=== PATIENT | female | born 1975 | race Caucasian/White ===

== ENCOUNTER 2017-08-23 15:48 | Emergency (ER) | payer OTHER ==
[~2017-08-23] VITALS: Wt 56.5 kg
[2017-08-23] MEDS ORDERED: SOD CHLORIDE 0.9% 1,000 ML IV STA (16:37)
[2017-08-23] MEDS ORDERED: CYAN500T46 PO (17:00)
[2017-08-23] MEDS ORDERED: CHOL500062 PO (17:01)
[2017-08-23 17:18] LABS: BASOPHIL # 0.1 10^3/ul (0.0-0.1); BASOPHILS % 0.9 % (0.0-2.0); EOSINOPHILS # 0.1 10^3/ul (0.0-0.5); EOSINOPHILS % 1.1 % (0.0-7.0); HEMATOCRIT 34.4 % (37.0-47.0); HEMOGLOBIN 10.9 g/dl (12.0-16.0); LYMPHOCYTES % 18.9 % (15.0-51.0); MEAN CORPUSCULAR HEMOGLOBIN 25.1 pg (29.0-33.0); MEAN CORPUSCULAR HGB CONC 31.7 g/dl (32.0-37.0); MEAN CORPUSCULAR VOLUME 79.1 fl (82.0-101.0); MEAN PLATELET VOLUME 10.5 fl (7.4-10.4); MONOCYTE # 1.1 10^3/ul (0.3-0.9); MONOCYTES % 10.6 % (0.0-11.0); NEUTROPHIL # 7.1 10^3/ul (1.6-7.5); NEUTROPHILS % 68.2 % (39.0-77.0); PLATELET COUNT 316 10^3/UL (140-415); RED BLOOD COUNT 4.35 10^6/ul (4.20-5.40); RED CELL DISTRIBUTION WIDTH 18.1 % (11.5-14.5); WHITE BLOOD COUNT 10.5 10^3/ul (4.8-10.8)
--- NOTE | 2017-08-23 17:27 | RADRPT ---
PROCEDURE: Chest x-ray CLINICAL INDICATION: Palpitations TECHNIQUE: Chest single view COMPARISON: None FINDINGS: The heart is normal in size. The pulmonary vessels are normal in caliber. The lungs are clear. Th e costophrenic angles are sharp. The visualized bony thorax is unremarkable. IMPRESSION: No acute cardiopulmonary disease. RPTAT: HH .Italo Rogers MD, Date Time Electronically viewed and signed by .Italo Rogers MD, MD on 08/23/2017 17:26 .W/
[2017-08-23 17:29] LABS: ADD UMIC YES; UR ASCORBIC ACID NEGATIVE (NEGATIVE); UR BILIRUBIN (Dip) NEGATIVE (NEGATIVE); UR BLOOD (Dip) 1+ mg/dL (NEGATIVE); UR CLARITY CLEAR (CLEAR); UR COLOR YELLOW (YELLOW); UR GLUCOSE (Dip) NEGATIVE (NEGATIVE); UR KETONES (Dip) NEGATIVE (NEGATIVE); UR LEUKOCYTE ESTERASE (Dip) 2+ Leu/ul (NEGATIVE); UR NITRITE (Dip) NEGATIVE (NEGATIVE); UR RBC 2 /HPF (0-5); UR SPECIFIC GRAVITY (Dip) 1.011 (1.003-1.030); UR SQUAMOUS EPITHELIAL CELL FEW /HPF (FEW); UR TOTAL PROTEIN (Dip) NEGATIVE (NEGATIVE); UR UROBILINOGEN (Dip) NEGATIVE (NEGATIVE)
[2017-08-23 17:47] LABS: ANION GAP 15 (8-16); BLOOD UREA NITROGEN 7 mg/dl (7-20); CALCIUM 9.1 mg/dl (8.4-10.2); CARBON DIOXIDE 27 mmol/L (21-31); CHLORIDE 103 mmol/L (97-110); CREATININE 0.64 mg/dl (0.44-1.00); GLUCOSE 103 mg/dl (70-220); POTASSIUM 3.3 mmol/L (3.5-5.1); SODIUM 142 mmol/L (135-144)
[2017-08-23 17:48] LABS: BARBITURATES Negative (NEGATIVE); BENZODIAZEPINES Negative (NEGATIVE); CANNABINOIDS Negative (NEGATIVE); COCAINE Negative (NEGATIVE); OPIATES Negative (NEGATIVE)
[2017-08-23 17:58] LABS: B-TYPE NATRIURETIC PEPTIDE 25 PG/ML (0-125); TROPONIN-I < 0.012 ng/ml (0.00-0.12)
[2017-08-23] MEDS ORDERED: CEPH-443 PO (18:14)
[2017-08-23] MEDS ORDERED: ALPR0.25 PO (18:14)
--- NOTE | 2017-08-23 18:31 | ERD ---
ER Documentation Chief Complaint Date/Time DATE: 08/23/17 TIME: 18:16 Chief Complaint palpitations since this am HPI 1-year-old female comes in for palpitations that she has since this morning. They have waxed and waned. She has had no actual chest pain. No shortness of breath. She has had no fevers and chills or other symptoms. Does not happen to her before. She does not smoke and has no cardiac risk factors. She does feel a little anxious she says that happens when it comes to emergency room. ROS All systems reviewed and are negative except as per history of present illness. Medications Home Meds Active Scripts Alprazolam* (Xanax*) 0.25 Mg Tablet, 0.25 MG PO Q8H Y for ANXIETY, #5 TAB Prov:SURAJ JOHNSON DO 08/23/17 Cephalexin* (Keflex*) 500 Mg Capsule, 500 MG PO QID for 3 Days, CAP Prov:ELIZABETHSURAJ DO 08/23/17 Reported Medications Cholecalciferol (Vitamin D3) (Vitamin D3) 5,000 Unit Tab.rapdis, 5000 UNIT PO DAILY 08/23/17 Cyanocobalamin* (Vitamin B12*) 500 Mcg Tab, 500 MCG PO DAILY, TAB 08/23/17 Allergies Allergies: Coded Allergies: ciprofloxacin (Unverified Allergy, Unknown, 08/23/17) clindamycin (Unverified Allergy, Unknown, 08/23/17) Physical Exam Vitals Vital Signs Date Time Temp Pulse Resp B/P Pulse Ox O2 Delivery O2 Flow Rate FiO2 08/23/17 15:54 98.8 124 20 145/67 100 Physical Exam Const: [] Mild distress, appears nervous, appears to be in very good health otherwise.. Eyes: Normal Conjunctiva ENT: Normal External Ears, Nose and Mouth. Neck: Full range of motion..~ No meningismus. Resp: Clear to auscultation bilaterally Cardio: Regular tachycardia, no murmurs Abd: Soft, non tender, non distended. Normal bowel sounds Skin: No petechiae or rashes Ext: No cyanosis, or edema Neur: Awake and alert Psych: Mildly anxious Result Diagram: 08/23/17 1650 08/23/17 1650 Results 24 hrs Laboratory Tests Test 08/23/17 16:50 08/23/17 17:02 White Blood Count 10.510^3/ul Red Blood Count 4.3510^6/ul Hemoglobin 10.9g/dl Hematocrit 34.4% Mean Corpuscular Volume 79.1fl Mean Corpuscular Hemoglobin 25.1pg Mean Corpuscular Hemoglobin Concent 31.7g/dl Red Cell Distribution Width 18.1% Platelet Count 11375^3/UL Mean Platelet Volume 10.5fl Neutrophils % 68.2% Lymphocytes % 18.9% Monocytes % 10.6% Eosinophils % 1.1% Basophils % 0.9% Nucleated Red Blood Cells % 0.0/100WBC Neutrophils # 7.110^3/ul Lymphocytes # 2.010^3/ul Monocytes # 1.110^3/ul Eosinophils # 0.110^3/ul Basophils # 0.110^3/ul Nucleated Red Blood Cells # 0.010^3/ul Sodium Level 142mmol/L Potassium Level 3.3mmol/L Chloride Level 103mmol/L Carbon Dioxide Level 27mmol/L Anion Gap 15 Blood Urea Nitrogen 7mg/dl Creatinine 0.64mg/dl Glucose Level 103mg/dl Calcium Level 9.1mg/dl Troponin I < 0.012ng/ml B-Type Natriuretic Peptide 25PG/ML Urine Color YELLOW Urine Clarity CLEAR Urine pH 8.0 Urine Specific [place] 1.011 Urine Ketones NEGATIVEmg/dL Urine Nitrite NEGATIVEmg/dL Urine Bilirubin NEGATIVEmg/dL Urine Urobilinogen NEGATIVEmg/dL Urine Leukocyte Esterase 2+Carrillo/ul Urine Microscopic RBC 2/HPF Urine Microscopic WBC 20/HPF Urine Squamous Epithelial Cells FEW/HPF Urine Hemoglobin 1+mg/dL Urine Glucose NEGATIVEmg/dL Urine Total Protein NEGATIVEmg/dl Urine Opiates Screen Negative Urine Barbiturates Negative Urine Amphetamines Screen Negative Urine Benzodiazepines Screen Negative Urine Cocaine Screen Negative Urine Cannabinoids Negative Current Medications Medications (Trade) Dose Ordered Sig/Ancelmo Route PRN Reason Start Time Stop Time Status Last Admin Dose Admin Sodium Chloride (NS) 1,000 ml @ 1,000 mls/hr Q1H STAT IV 08/23/17 16:37 08/23/17 17:36 DC 08/23/17 17:15 Procedures/MDM Tachycardia resolved prior to any medication administration. Patient was given normal saline. Tachycardia may be related to a urinary tract infection. Troponin is negative and no signs of cardiac ischemia. This patient is currently asymptomatic I am going to discharge with instructions to obtain an echocardiogram soon through her primary care doctor. Return precautions are also given. I have low suspicion for pulmonary embolism as patient does not have chest pain or shortness of breath. I still do want her to come back to emergency room immediately if she has any increase in symptoms or any symptoms of PE which have explained. EKG interpretation: Sinus tachycardia rate of 131, normal axis, no ST or T-wave changes concerning for acute ischemia, nonspecific ST abnormality, normal intervals. spa manager interpretation: Initial sinus tachycardia followed by normal sinus rhythm without arrhythmias Chest x-ray interpretation: I see no acute process, excellent inspiration, no pneumothorax, no infiltrates, no pulmonary edema, no fractures. Departure Diagnosis: Primary Impression: UTI (urinary tract infection) Additional Impressions: Palpitations Mild anemia Condition: Stable Patient Instructions: Understanding Urinary Tract Infections (UTIs), Palpitations Additional Instructions: Llame al doctor MARONALD y julianna jose MARIZA PARA DENTRO DE 2-3 ULLOA. Consigue un referral para un ECHOCARDIOGRAM. Dgale a la secretaria que nosotros le instruimos hacer esta mariza.Avise o llame si brooks condicin se empeora antes de la mariza. Regresa aqui si peor o no mejor. SURAJ JOHNSON DO Aug 23, 2017 18:27
[2017-08-23 18:54] VITALS: BP 111/72; PULSE 79; RESP 18
== END 2017-08-23 18:54 | disposition home or self-care (01) ==
LOC: E/R 15:48
DX: N39.0 Urinary tract infection, site not specified (principal); D64.9 Anemia, unspecified
CPT/HCPCS: 36415; 71010; 80048; 80307; 81001; 83880; 84484; 85025; 99285; J7030

== ENCOUNTER 2017-09-26 12:41 | Emergency (ER) | payer OTHER ==
[~2017-09-26] VITALS: Wt 55.9 kg
[~2017-09-26 12:41] MED LIST: ALPR0.25 PO; CEPH-443 PO; CHOL500062 PO; CYAN500T46 PO
[2017-09-26] MEDS ORDERED: ONDANSETRON (ODT) 4 MG TAB ODT STA (13:06)
[2017-09-26 13:21] LABS: BASOPHIL # 0.1 10^3/ul (0.0-0.1); BASOPHILS % 1.2 % (0.0-2.0); EOSINOPHILS # 0.2 10^3/ul (0.0-0.5); HEMATOCRIT 34.6 % (37.0-47.0); HEMOGLOBIN 11.1 g/dl (12.0-16.0); LYMPHOCYTES # 1.7 10^3/ul (0.8-2.9); LYMPHOCYTES % 28.5 % (15.0-51.0); MEAN CORPUSCULAR HEMOGLOBIN 25.4 pg (29.0-33.0); MEAN CORPUSCULAR HGB CONC 32.1 g/dl (32.0-37.0); MEAN CORPUSCULAR VOLUME 79.2 fl (82.0-101.0); MEAN PLATELET VOLUME 10.5 fl (7.4-10.4); MONOCYTE # 0.6 10^3/ul (0.3-0.9); NEUTROPHIL # 3.5 10^3/ul (1.6-7.5); NEUTROPHILS % 57.1 % (39.0-77.0); PLATELET COUNT 235 10^3/UL (140-415); RED BLOOD COUNT 4.37 10^6/ul (4.20-5.40); RED CELL DISTRIBUTION WIDTH 18.3 % (11.5-14.5); WHITE BLOOD COUNT 6.1 10^3/ul (4.8-10.8)
[2017-09-26 13:41] LABS: ALBUMIN 4.3 g/dl (3.3-4.9); ALBUMIN/GLOBULIN RATIO 1.38; BILIRUBIN,INDIRECT 0.3 mg/dl (0-1.1); BILIRUBIN,TOTAL 0.3 mg/dl (0.2-1.3); CALCIUM 8.9 mg/dl (8.4-10.2); CREATININE 0.57 mg/dl (0.44-1.00); POTASSIUM 3.7 mmol/L (3.5-5.1); TOTAL PROTEIN 7.4 g/dl (6.1-8.1)
--- NOTE | 2017-09-26 14:40 | RADRPT ---
PROCEDURE: Right upper quadrant ultrasound CLINICAL INDICATION: Pain TECHNIQUE: Multiple real-time images were acquired of the patient's abdomen and right retroperiton eum utilizing a high resolution transducer. COMPARISON: None FINDINGS: The liver is normal in echogenicity and measures 12.8 cm. No focal hepatic masses are seen. The ga llbladder is physiologically distended. There is no evidence of gallstones, gallbladder wall thicke margarito, or pericholecystic fluid. The intra and extrahepatic bile ducts are normal in caliber. The c ommon bile duct measures 1.8 mm. Midline images demonstrate the pancreas to be normal in echogenicity without obvious inflammatory ch xander. Survey views of the right kidney demonstrate no evidence of hydronephrosis or renal calculi. The ri ght kidney measures 9.3 cm. IMPRESSION: Unremarkable right upper quadrant ultrasound. No evidence of cholelithiasis or acute cholecystitis. . RPTAT: HH .Italo Rogers MD, Date Time Electronically viewed and signed by .Italo Rogers MD, on 09/26/2017 14:40 .W/
[2017-09-26 14:46] LABS: URINE BLOOD (Dip) POC 2+ (NEGATIVE)
[2017-09-26] MEDS ORDERED: CEPH-443 PO (14:55)
--- NOTE | 2017-09-26 15:03 | ERD ---
ER Documentation Chief Complaint Chief Complaint ruq pain w nausea, in no distress states "not much pain today" 01/13. HPI This patient is a 42-year-old female who presents with right upper quadrant pain she has had on and off for several months she states that yesterday was really bad but today it is much better and rates the pain currently is a 3 out of 10. She has nausea but no vomiting. No diarrhea. No change with eating. No fever. He also admits to dysuria and increased urinary frequency as well as urine being a cloudy color. ROS All systems reviewed and are negative except as per history of present illness. Medications Home Meds Active Scripts Cephalexin* (Keflex*) 500 Mg Capsule, 500 MG PO BID for 5 Days, CAP Prov:RAFFI COBURN PA-C 09/26/17 Alprazolam* (Xanax*) 0.25 Mg Tablet, 0.25 MG PO Q8H Y for ANXIETY, #5 TAB Prov:ELIZABETHSURAJ DO 08/23/17 Cephalexin* (Keflex*) 500 Mg Capsule, 500 MG PO QID for 3 Days, CAP Prov:SURAJ JOHNSON DO 08/23/17 Reported Medications Cholecalciferol (Vitamin D3) (Vitamin D3) 5,000 Unit Tab.rapdis, 5000 UNIT PO DAILY 08/23/17 Cyanocobalamin* (Vitamin B12*) 500 Mcg Tab, 500 MCG PO DAILY, TAB 08/23/17 Allergies Allergies: Coded Allergies: ciprofloxacin (Unverified Allergy, Unknown, 08/23/17) clindamycin (Unverified Allergy, Unknown, 08/23/17) PMhx/Soc Medical and Surgical Hx: pt denies Medical Hx, pt denies Surgical Hx Hx Alcohol Use: No Hx Substance Use: No Smoking Status: Never smoker FmHx Family History: No diabetes Physical Exam Vitals Vital Signs Date Time Temp Pulse Resp B/P Pulse Ox O2 Delivery O2 Flow Rate FiO2 09/26/17 12:44 98.4 100 20 160/90 99 Physical Exam INITIAL VITAL SIGNS: Reviewed by me GENERAL: Awake, alert and oriented x 4, well appearing, nontoxic, speaking in full sentences. No acute distress HEAD: Atraumatic NECK: Supple. No masses. Full range of motion. No meningismus. No midline tenderness. RESPIRATORY: Clear to auscultation bilaterally. Symmetric chest wall rise. No wheezing or rales. No accessory muscle use. CV: Regular rate and rhythm. No murmurs, rubs, or gallops. ABDOMEN: Soft, non-distended. Nontender. Negative [place]. Negative McBurneys point tenderness. No CVA tenderness bilaterally. No guarding. No rebound. Result Diagram: 09/26/17 1315 09/26/17 1315 Results 24 hrs Laboratory Tests Test 09/26/17 13:15 09/26/17 14:45 White Blood Count 6.110^3/ul Red Blood Count 4.3710^6/ul Hemoglobin 11.1g/dl Hematocrit 34.6% Mean Corpuscular Volume 79.2fl Mean Corpuscular Hemoglobin 25.4pg Mean Corpuscular Hemoglobin Concent 32.1g/dl Red Cell Distribution Width 18.3% Platelet Count 78484^3/UL Mean Platelet Volume 10.5fl Neutrophils % 57.1% Lymphocytes % 28.5% Monocytes % 10.0% Eosinophils % 3.0% Basophils % 1.2% Nucleated Red Blood Cells % 0.0/100WBC Neutrophils # 3.510^3/ul Lymphocytes # 1.710^3/ul Monocytes # 0.610^3/ul Eosinophils # 0.210^3/ul Basophils # 0.110^3/ul Nucleated Red Blood Cells # 0.010^3/ul Sodium Level 141mmol/L Potassium Level 3.7mmol/L Chloride Level 105mmol/L Carbon Dioxide Level 24mmol/L Anion Gap 16 Blood Urea Nitrogen 9mg/dl Creatinine 0.57mg/dl Glucose Level 120mg/dl Calcium Level 8.9mg/dl Total Bilirubin 0.3mg/dl Direct Bilirubin 0.00mg/dl Indirect Bilirubin 0.3mg/dl Aspartate Amino Transf (AST/SGOT) 28IU/L Alanine Aminotransferase (ALT/SGPT) 34IU/L Alkaline Phosphatase 64IU/L Total Protein 7.4g/dl Albumin 4.3g/dl Globulin 3.10g/dl Albumin/Globulin Ratio 1.38 Lipase 232U/L Bedside Urine pH (LAB) 7.0 Bedside Urine Protein (LAB) Negative Bedside Urine Glucose (UA) Negative Bedside Urine Ketones (LAB) 1+ Bedside Urine Blood 2+ Bedside Urine Nitrite (LAB) Negative Bedside Urine Leukocyte Esterase (L Trace Current Medications Medications (Trade) Dose Ordered Sig/Ancelmo Route PRN Reason Start Time Stop Time Status Last Admin Dose Admin Ondansetron HCl (Zofran Odt) 4 mg ONCE STAT ODT 09/26/17 13:06 09/26/17 13:07 DC 09/26/17 13:12 Procedures/MDM 42-year-old female presents with abdominal pain. Patient had elevated blood pressure 160/90 otherwise vital signs are within normal limits. The differential diagnosis includes but is not limited to appendicitis, cholelithiasis, cholecystitis, pancreatitis, hepatitis, gastritis, peptic ulcer disease, bowel obstruction, diverticulitis, renal disease including stones, torsion, AAA, pyelonephritis, and others. Patient has no tenderness throughout her abdomen. Blood work is unremarkable. Given urine results and patient is symptomatic with dysuria hematuria increased urinary frequency patient discharged with Keflex. She was given copies of all of her labs and ultrasound reports she can follow with primary care. Patient counseled regarding my diagnostic impression and care plan. Prior to discharge all questions answered. Pt agrees with treatment plan and understands strict return precautions. Pt is instructed to follow up with primary care provider within 24-48 hours. Precautionary instructions provided including instructions to return to the ER if not improving or for any worsening or changing symptoms or concerns. Departure Diagnosis: Primary Impression: Abdominal pain Condition: Stable Patient Instructions: Abdominal Pain, Unknown Cause, (Female) Additional Instructions: Call your primary care doctor TOMORROW for an appointment during the next 1-2 days.See the doctor sooner or return here if your condition worsens before your appointment time. RAFFI COBURN PA-C Sep 26, 2017 15:03
[2017-09-26] MEDS ORDERED: NITR-58 PO (15:11)
[2017-09-26 15:57] LABS: ADD UMIC YES; UR ASCORBIC ACID NEGATIVE (NEGATIVE); UR BILIRUBIN (Dip) NEGATIVE (NEGATIVE); UR BLOOD (Dip) 2+ mg/dL (NEGATIVE); UR CLARITY SLIGHTLY CLOUDY (CLEAR); UR COLOR YELLOW (YELLOW); UR GLUCOSE (Dip) NEGATIVE (NEGATIVE); UR KETONES (Dip) TRACE mg/dL (NEGATIVE); UR LEUKOCYTE ESTERASE (Dip) 1+ Leu/ul (NEGATIVE); UR MUCUS FEW /HPF (NONE SEEN); UR NITRITE (Dip) NEGATIVE (NEGATIVE); UR RBC 12 /HPF (0-5); UR SPECIFIC GRAVITY (Dip) 1.023 (1.003-1.030); UR SQUAMOUS EPITHELIAL CELL FEW /HPF (FEW); UR TOTAL PROTEIN (Dip) NEGATIVE (NEGATIVE); UR UROBILINOGEN (Dip) NEGATIVE (NEGATIVE)
== END 2017-09-26 15:13 | disposition home or self-care (01) ==
LOC: FTE 12:41
DX: R10.11 Right upper quadrant pain (principal)
CPT/HCPCS: 76705; 80053; 81001; 81003; 83690; 85025

== ENCOUNTER 2018-05-14 09:45 | Emergency (ER) | END 2018-05-14 12:07 | disposition home or self-care (01) ==